=== PATIENT | female | born 1995 | race Caucasian/White ===

== ENCOUNTER 2018-05-23 21:55 | Emergency (ER) | payer OTHER ==
[~2018-05-23] VITALS: Ht 167.6 cm; Wt 59.0 kg
[2018-05-23 22:22] LABS: ABSOLUTE BASOPHIL COUNT 0 /CUMM (0.0-0.2); ABSOLUTE EOSINOPHIL COUNT 0.1 /CUMM (0.0-0.7); ABSOLUTE GRANULOCYTE CT 4.7 /CUMM (1.4-6.5); ABSOLUTE LYMPH COUNT 1.8 /CUMM (1.2-3.4); ABSOLUTE MONOCYTE COUNT 0.4 /CUMM (0.10-0.60); BASOPHIL % 0.2 % (0.0-2.0); EOSINOPHIL % 0.8 % (0-5); HEMATOCRIT 40.3 % (37-47); MEAN CORPUSCULAR HGB 31.4 PG (27.0-31.0); MEAN CORPUSCULAR HGB CONC 33.5 G/DL (33.0-37.0); MEAN CORPUSCULAR VOLUME 93.5 FL (81.0-99.0); PLATELET COUNT 297 /CUMM (130-400); RBC DISTRIBUTION WIDTH 13.3 % (11.5-14.5); RED BLOOD CELL CT 4.31 /CUMM (4.20-5.40)
--- NOTE | 2018-05-23 23:46 | RADIOLOGY REPORT ---
EXAMINATION: XR CHEST CLINICAL INFORMATION: Chest pain COMPARISON: None TECHNIQUE: 2 views of the chest were obtained. FINDINGS: No focal consolidation, pulmonary edema, or pleural effusion. Normal cardiomediastinal silhouette. IMPRESSION: Normal chest.
--- NOTE | 2018-05-24 00:06 | ED CARDIAC/CP/PALPITATIONS ---
History of Present Illness General Chief Complaint: Chest Pain Stated Complaint: CP Source: patient, family, old records Exam Limitations: no limitations Vital Signs & Intake/Output Vital Signs & Intake/Output Vital Signs Date Time Temp Pulse Resp B/P B/P Pulse O2 O2 Flow FiO2 Mean Ox Delivery Rate 05/24 0108 98.7 48 18 111/66 98 Room Air 05/23 2345 Room Air 05/23 2202 98.4 60 18 126/77 100 Room Air ED Intake and Output 05/24 0000 05/23 1200 Intake Total 0 Output Total Balance 0 Intake, Oral 0 Patient 130 lb Weight Weight Reported by Patient Measurement Method Allergies Coded Allergies: No Known Drug Allergies ([facility]DA 05/23/18) Triage Note: PT TO ED C/O CENTER CHEST PAIN ALL DAY. CONSTANT WITH FLARE UPS. PAIN STARTS HEAVINESS IN EPIGASTRIC AREA AND GOES STRAIGHT UP TO UPPER CHEST, WHERE PAIN FEELS LIKE A TIGHTNESS. HEAVINESS WORSE WITH DEEP INSPIRATION. PAIN WORSE WHEN SUPINE. NO CHANGE WITH PALPATION. +NAUSEA, DENIES VOMITTING. C/O HEADACHE. NO DIZZINESS. NO FEVERS. NO COUGH. Triage Nurses Notes Reviewed? yes Onset: Morning Duration: hour(s):, better, constant Timing: recent history Quality/Severity: moderate, aching Location: epigastric Radiation: substernal Activities at Onset: rest Prior Chest Pain/Card Workup: no prior cardiac workup Modifying Factors: Improves With: exercise. Worsens With: lying down. Nitro Today/Relief: no nitro taken today Aspirin Today: no aspirin today Associated Symptoms: nausea/vomiting LMP (ages 10-50): unknown : No Patient currently breastfeeds: No HPI: 1 day prior to admission patient complains of epigastric pain sharp constant radiating to substernal area associated with nausea shortness of breath improved with exertion walking. She denies fever chills vomiting diarrhea abdominal pain headache dysuria rash bleeding. Past History Travel History Traveled to [place] past 21 day No Medical History Any Pertinent Medical History? see below for history Cardiovascular: MITRAL [employer] [facility]URG Surgical History Surgical History: non-contributory Psychosocial History What is your primary language Sami Tobacco Use: Current Daily Use Daily Tobacco Use Amount/Type: => 5 Cigarettes daily ETOH Use: denies use Illicit Drug Use: denies illicit drug use Family History Hx Contributory? No Review of Systems Review of Systems Constitutional: Reports: no symptoms. EENTM: Reports: no symptoms. Respiratory: Reports: see HPI, short of breath. Cardiovascular: Reports: see HPI, chest pain. GI: Reports: see HPI, nausea. Genitourinary: Reports: no symptoms. Musculoskeletal: Reports: no symptoms. Skin: Reports: no symptoms. Neurological/Psychological: Reports: no symptoms. Hematologic/Endocrine: Reports: no symptoms. Immunologic/Allergic: Reports: no symptoms. All Other Systems: Reviewed and Negative Physical Exam Physical Exam General Appearance: well developed/nourished, alert, awake, anxious, mild distress Head: atraumatic, normal appearance Eyes: Bilateral: normal appearance, PERRL, EOMI. Ears, Nose, Throat: normal pharynx, normal ENT inspection, hearing grossly normal Neck: normal inspection, supple, full range of motion, no midline tenderness Respiratory: normal breath sounds, chest non-tender, no respiratory distress, quiet respiration, lungs clear Cardiovascular: regular rate/rhythm, normal peripheral pulses, norml femoral pulses equa Peripheral Pulses: 4+ carotid (R), 4+ carotid (L) Gastrointestinal: normal bowel sounds, soft, non-tender, no organomegaly Back: normal inspection, normal range of motion, no vertebral tenderness Extremities: normal inspection, normal capillary refill, normal range of motion, no edema Neurologic/Psych: no motor/sensory deficits, awake, alert, oriented x 3, normal gait, 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 Skin: intact, normal color, warm/dry Lymphatic: no anterior cervical eneida Core Measures ACS in differential dx? No No ASA d/t Pharmacological CI CVA/TIA Diagnosis No Sepsis Present: No Sepsis Focused Exam Completed? No Progress Differential Diagnosis: costochondritis, hyperkalemia, hypovolemia, musculoskeletal pain, pancreatitis, pneumonia, PUD/GERD Plan of Care: Orders Procedure Date/time Status Add-on Test (ER Only) 05/23 2343 Active LIPASE 05/23 2217 Complete LITHIUM 05/23 2217 Complete TROPONIN LEVEL 05/23 2212 Complete HUMAN BETA HCG SCREEN 05/23 2212 Complete COMPREHENSIVE METABOLIC PANEL 05/23 2212 Complete CBC WITHOUT DIFFERENTIAL 05/23 2212 Complete EKG 05/23 2156 Active Laboratory Tests 05/23/182216: Anion Gap 8, Estimated GFR > 60, BUN/Creatinine Ratio 12.5, Glucose 94, Calcium 10.3 H, Total Bilirubin 0.2, AST 17, ALT 22, Alkaline Phosphatase 67, Troponin I < 0.01, Total Protein 7.4, Albumin 4.6, Globulin 2.8, Albumin/Globulin Ratio 1.6, Lipase 101, Total Beta HCG NEGATIVE, CBC w Diff NO MAN DIFF REQ, RBC 4.31, MCV 93.5, MCH 31.4 H, MCHC 33.5, RDW 13.3, MPV 7.0 L, Gran % 67.0, Lymphocytes % 25.8, Monocytes % 6.2, Eosinophils % 0.8, Basophils % 0.2, Absolute Granulocytes 4.7, Absolute Lymphocytes 1.8, Absolute Monocytes 0.4, Absolute Eosinophils 0.1, Absolute Basophils 0, Morris 0.7 Diagnostic Imaging: Viewed by Me: Radiology Read. Discussed w/RAD: Radiology Read. CXR Impression: no acute abnormality, no infiltrates, normal size heart, normal mediastinum Initial ED EKG: normal axis, normal intervals, normal p-waves, normal QRS complex, normal sinus rhythm, no ST T wave changes Rhythm Strip: normal sinus rhythm Departure Departure Time of Disposition: 134 Disposition: HOME OR SELF CARE Condition: Stable Clinical Impression Primary Impression: Chest pain syndrome Referrals: Sandy Butterfield MD (PCP/Family) Departure Forms: Customer Survey General Discharge Information Critical Care Note Critical Care Note Critical Care Time: non-applicable
[2018-05-24 00:39] LABS: LITHIUM 0.7 mmol/L (0.6-1.2)
[2018-05-24 01:08] VITALS: BP 111/66
== END 2018-05-24 01:45 ==
LOC: ERH 21:55
PROVIDERS: Emergency Medicine
DX: R07.1 Chest pain on breathing (principal); R10.13 Epigastric pain; R11.0 Nausea; R06.02 Shortness of breath; F17.210 Nicotine dependence, cigarettes, uncomplicated
CPT/HCPCS: 71046; 93005; 93010; J0131